=== PATIENT | male | born 1940 | race Caucasian/White ===

== ENCOUNTER 2020-08-14 10:21 | Emergency (ER) | payer OTHER ==
[~2020-08-14] VITALS: Ht 170.2 cm; Wt 60.8 kg
--- NOTE | 2020-08-14 10:24 | NUR ---
PT IS IN ROOM #1A. DR LANDIS EVALUATED THE PT.
[2020-08-14] MEDS ORDERED: TDAP DIPH,PERTUSS,TET VAC/PF 0.5 ML DISP.SYRIN IM ONE ×3 (10:45→10:57)
[2020-08-14 10:54] LABS: HEMATOCRIT 41.5 % (36.7-47.1); MEAN CORPUSCULAR HEMOGLOBIN 30.8 uug (23.8-33.4); MEAN CORPUSCULAR VOLUME 91.4 fL (73.0-96.2); PLATELET COUNT (AUTO) 256 K/uL (152-348)
[2020-08-14 10:55] LABS: CREATININE 1.1 mg/dL (0.6-1.3)
[2020-08-14 11:01] LABS: BILIRUBIN,DIRECT 0.1 mg/dL (0.0-0.2); BILIRUBIN,TOTAL 0.6 mg/dL (0.2-1.0); TOTAL PROTEIN, SERUM 7.3 g/dL (6.4-8.2)
[2020-08-14] MEDS ORDERED: KETOROLAC TROMETHAMINE 30 MG INJ ONE (11:12)
[2020-08-14] MEDS ORDERED: KETOROLAC TROMETHAMINE 30 MG INJ IM ONE (11:15)
[2020-08-14] MEDS ORDERED: ACET1TAB23 PO (13:19)
--- NOTE | 2020-08-14 14:00 | NUR ---
SABIHA.PT WAS D/C'd TO HOME. D/C INSTRUCTIONS GIVEN TO THE PT BY DR LANDIS.
[2020-08-14 14:01] VITALS: BP 141/72
== END 2020-08-14 14:02 | disposition home or self-care (01) ==
LOC: ER 10:21
DX: S22.42XA Multiple fractures of ribs, left side, initial encounter for closed fracture (principal); S80.812A Abrasion, left lower leg, initial encounter; V43.52XA Car driver injured in collision with other type car in traffic accident, initial encounter; Y92.414 Local residential or business street as the place of occurrence of the external cause; R07.9 Chest pain, unspecified
CPT/HCPCS: 36415; 71045; 71111; 73590; 80048; 80076; 84484; 85025; 90471; 90715; 93005; 96372; 99285; J1885; 70030-TC; J7030